=== PATIENT | female | born 1960 | race Two or more races ===

== ENCOUNTER 2023-09-24 17:21 | Emergency (ER) | payer OTHER ==
[~2023-09-24] VITALS: Ht 157.5 cm; Wt 52.2 kg
[2023-09-24 18:39] LABS: HEMATOCRIT 33.7 % (36.0-45.00); HEMOGLOBIN 11.8 g/dL (12.0-15.00); MEAN CELL VOLUME 90.1 fL (80.00-100.00); MEAN CORPUSCULAR HEMOGLOBIN 31.5 pg (27.00-32.0); RED BLOOD COUNT 3.74 M/uL (4.00-6.00); RED CELL DISTRIBUTION WIDTH 13.5 % (11.5-14.5)
[2023-09-24 18:40] LABS: PLATELET COUNT 35 K/uL (150-450)
[2023-09-24 18:51] LABS: ALBUMIN 3.2 gm/dL (3.4-5.0); BILIRUBIN TOTAL 2.07 mg/dL (0.3-1.2); CALCIUM 9.1 mg/dL (8.5-10.1); CREATININE SERUM 0.64 mg/dL (0.55-1.02); GFR 93.42; GLOBULINA 4.1 G/DL (2.4-3.5); POTASSIUM 3.57 mEq/L (3.5-5.1); TOTAL PROTEIN 7.3 gm/dL (6.4-8.2)
== END 2023-09-24 20:29 | disposition home or self-care (01) ==
LOC: ER 17:22
PROVIDERS: General Practice
DX: R11.2 Nausea with vomiting, unspecified (principal); D69.6 Thrombocytopenia, unspecified; Z88.8 Allergy status to other drugs, medicaments and biological substances; Z85.89 Personal history of malignant neoplasm of other organs and systems; C56.2 Malignant neoplasm of left ovary; E86.0 Dehydration
CPT/HCPCS: 36415; 96365; 96366; 99284; J2405; J2930; J3490; J7030